=== PATIENT | female | born 1990 | race Two or more races ===

== ENCOUNTER 2025-01-07 11:18 | Emergency (ER) | payer OTHER, MEDICAID, SELFPAY ==
--- NOTE | 2025-01-07 11:35 | EKG_ITS ---
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
[2025-01-07 11:43] VITALS: BP 130/82; PULSE 77; RESP 18; TEMP 36.9; O2SAT 98; BMI 38.9
--- NOTE | 2025-01-07 12:09 | XR_ITS ---
Examination: OB Transvaginal ultrasound of the pelvis, complete Technique: Transvaginal sonographic images pelvis performed using waters scale imaging Exam date and time: January 07, 2025 1311 hours INDICATIONS: Vaginal bleeding beginning 2 days ago, positive test at home FINDINGS: Uterus 8.5 x 4.3 x 5.1 cm No uterine mass or intrauterine gestation No retained products Endometrial stripe 0.4 cm Right ovary 4.4 cm arterial flow solid lesion 19 x 15 x 17 mm Left ovary 5.6 cm arterial flow, left ovarian solid mass 4.0 x 3.6 x 4.5 cm IMPRESSION: Bilateral solid ovarian masses, differential would include endometriomas, early solid ovarian mass lesions Recommend elective MRI pelvis follow-up pre and postcontrast
--- NOTE | 2025-01-07 12:09 | XR_ITS ---
Examination: CT brain head without contrast. 2-D sagittal coronal reconstructions Date and time of exam:January 07, 2025 at 1344 hours Comparison April 10, 2023 INDICATIONS: Syncopal episode, patient fell today CTDI: vol (mGy):51.1 DLP: (mGycm):957 Technique: Multiple CT axial sections of the brain have been obtained, 5 mm slice thickness. Contrast has not been administered. 2-D sagittal, coronal reconstructions have been obtained Low dose protocols were performed. One or more of the following dose reduction techniques were used; automated exposure control, adjustment of the mA and/or KV according to patient size, use of iterative reconstruction technique. Findings: Very extensive artifacts from metallic clips in the patient's hair Ventricles are not enlarged No mass effect No gross hemorrhage IMPRESSION: Significantly limited study No gross hemorrhage, no gross mass effect
--- NOTE | 2025-01-07 12:10 | PD.EDRME ---
Rapid Medical Screening Exam RME Arrival date/time: 01/07/25 11:18 34-year-old female with history of stroke x 2, anemia, hypothyroidism and type 2 diabetes presents emergency department today complains of syncopal episode today patient reports that she is at this time Chief Complaint: Syncope / Near Syncope Time Seen by Provider: 01/07/25 11:59 Vital signs: Vital Signs Temperature 98.5 F 01/07/25 11:43 Pulse Rate 77 01/07/25 11:43 Respiratory Rate 18 01/07/25 11:43 Blood Pressure 130/82 01/07/25 11:43 Pulse Oximetry (%) 98 01/07/25 11:43 Oxygen Delivery Method Room Air 01/07/25 11:43
[2025-01-07 12:54] LABS: Basophils % (Auto) 0 % (0-2.5); Eosinophils # (Auto) 0.1 Thou/mm3 (0.0-0.5); Eosinophils % (Auto) 1 % (0-10); Hematocrit 40.6 % (36.0-46.0); Hemoglobin 13.6 g/dL (12.0-16.0); Immature Granulocytes % (Auto) 0 % (0-0); Immature Granulocytes Auto 0.04 Thou/mm3 (0.00-0.00); Lymphocytes # (Auto) 2.5 Thou/mm3 (1.0-4.8); Lymphocytes % (Auto) 22 % (10-50); Mean Corpuscular HGB Conc 33.5 g/dl (31.0-37.0); Mean Corpuscular Hemoglobin 30.1 pg (25.0-35.0); Mean Corpuscular Volume 90 fL (80-100); Monocytes # (Auto) 0.6 Thou/mm3 (0.0-0.8); Monocytes % (Auto) 5 % (0-12); Neutrophils # (Auto) 8.1 Thou/mm3 (1.8-7.7); Neutrophils % (Auto) 71 % (37-80); Nucleated Red Blood Cell % 0 /100 WBC (0); Platelet Count 343 Thou/mm3 (140-440); RDW Standard Deviation 46.9 fL (36.4-46.3); Red Blood Count 4.52 Miln/mm3 (4.00-5.20); White Blood Count 11.5 Thou/mm3 (3.6-11.0)
[2025-01-07 13:30] LABS: Alanine Aminotransferase 16 U/L (10-49); Albumin, Serum 4.5 gm/dL (3.5-5.0); Albumin/Globulin Ratio 1.4 (1.2-2.2); Alkaline Phosphatase 93 U/L (46-116); Anion Gap 8 (7-16); Aspartate Amino Transferase 14 U/L (0-34); BUN/Creatinine Ratio 15 Ratio (12-20); Beta HCG,Quantitative < 1 mIU/mL (<5.0); Bilirubin,Total 0.5 mg/dL (0.3-1.2); Blood Urea Nitrogen 9 mg/dL (9-23); Calcium 9.1 mg/dL (8.3-10.6); Calcium (Corrected) 9.1 mg/dL (8.5-10.1); Carbon Dioxide 25.6 mMol/L (20.0-31.0); Chloride 105 mMol/L (98-107); Creatinine (Component) 0.6 mg/dL (0.6-1.3); Estimated Creatinine Clearance 150.2 mL/min (>60); Globulin 3.2 gm/dL (2.3-3.5); Glucose 79 mg/dL (74-106); Osmolality,Calculated 275 (275-295); Potassium 3.9 mMol/L (3.4-5.1); Sodium 139 mMol/L (136-145); Total Protein 7.7 gm/dL (5.7-8.2); Troponin I < 0.002 ng/mL (0.0-0.045); eGFR > 60 See Note
[2025-01-07 14:43] VITALS: BP 119/87; PULSE 68; RESP 16; TEMP 36.7; O2SAT 99
--- NOTE | 2025-01-07 14:44 | EDNOTE_ITS ---
ED Syncope RME/HPI General Chief Complaint: Syncope / Near Syncope Stated Complaint: SYNCOPE AT WORK WITH VAGINAL BLEEDING X 1 HR Time Seen by Provider: 01/07/25 11:59 Arrival date/time: 01/07/25 11:18 RME / HPI RME / HPI narrative: 34-year-old female with history of stroke x 2, anemia, hypothyroidism and type 2 diabetes presents emergency department today complains of syncopal episode today patient reports that she is at this time patient denies any other complaints except for vaginal bleeding that started today. Patient is ambulatory. Related Data Home Medications ?Medication ?Instructions ?Recorded ?Confirmed ferrous sulfate 325 mg (65 mg 1 tab PO QDAY 05/23/22 0 05/23/22 iron) tablet Previous Rx's ?Medication ?Instructions ?Recorded ciprofloxacin HCl 500 mg tablet 500 mg PO Q12H #20 tab s 05/23/22 (Cipro) Allergies Allergy/AdvReac Type Severity Reaction Status Date / Time Penicillins Allergy Severe SWELLING, Verified 04/09/23 16:59 HIVES, SOB latex Allergy Intermediate Hives Verified 04/09/23 16:59 raspberry Allergy Mild HIVES Verified 04/09/23 16:59 Anesthetics - Amide Type - Allergy Unknown Verified 04/09/23 16:59 Select A Anesthetics - Yuliana Type- Allergy Unknown Verified 04/09/23 16:59 Parabens amoxicillin Allergy Verified 04/09/23 16:59 Review of Systems Review of Systems Narrative Review of Systems: Review of system reviewed and within normal limits except mentioned in HPI ED Exam Narrative Physical exam: VITAL SIGNS: Reviewed. GENERAL APPEARANCE: Alert and interactive, follows commands, no acute distress, HEAD AND FACE: Non-traumatic. ENT: PERRL, pink conjunctivitis, eyelid no trauma, Mucous membrane moist. NECK: Supple, nontender, no nuchal rigidity. CHEST: No tenderness, no crepitus, no paradoxical movement, no retractions. LUNGS: Clear, well ventilated, symmetric, no rales, no wheezing, no ronchi, no stridor, good breath sounds bilaterally. HEART: Regular rate, regular rhythm, no murmur, no gallops. ABDOMEN: Soft, positive bowel sounds, nondistended, no guarding, nontender, no rebound, no masses, RECTAL: Deferred. GENITAL: Deferred. NEUROLOGICAL: Gross motor function intact sensory function intact, Appropriate for age. MUSCULOSKELETAL: low back nontender, full range of motion. EXTREMITIES: Nontender, full range of motion. SKIN: Color pink, dry, no rash, no lacerations, no abrasions, no contusions. LYMPHATICS: Deferred. Course Quality Measures none Orders Category Date Time Status EKG (ED ONLY) *Do not use* NOW Care 01/07/25 11:[address] head/brain wo con Stat Exams 01/07/25 12:09 Completed EKG (ED Only) Stat Exams 01/07/25 11:35 Draft US OB transvaginal Stat Exams 01/07/25 12:09 Completed ABO/RH Type Stat Lab 01/07/25 12:07 Completed Beta HCG,Quantitative Stat Lab 01/07/25 12:07 Completed CBC Stat Lab 01/07/25 12:07 Completed Comprehensive Metabolic Panel Stat Lab 01/07/25 12:07 Completed Troponin I Stat Lab 01/07/25 12:07 Completed Vital Signs Vital signs: Vital Signs Temperature 98.5 F 01/07/25 11:43 Pulse Rate 77 01/07/25 11:43 Respiratory Rate 18 01/07/25 11:43 Blood Pressure 130/82 01/07/25 11:43 Pulse Oximetry (%) 98 01/07/25 11:43 Oxygen Delivery Method Room Air 01/07/25 11:43 Syncope MDM Narrative MDM Narrative:: 34-year-old female with history of stroke x 2, anemia, hypothyroidism and type 2 diabetes presents emergency department today complains of syncopal episode today patient reports that she is at this time patient denies any other complaints except for vaginal bleeding that started today. Patient is ambulatory. Patient's workup today all came back unremarkable no sign of anemia. Patient is not . Ultrasound showed possible endometrial mass. Of the ovaries. Patient was given copy of his ultrasound. Patient appears nontoxic and hemodynamically stable. Patient discharged home and instructed to follow-up with primary care provider in 24 to 48 hours. Instructed to return to the emergency department immediately if worsening of symptoms Patient data External records reviewed:: None Clinical information provided by:: none Social determinants that could affect healthcare access:: none Patient has the following chronic illnesses:: None How is presenting disease/condition affected by chronic disease/condition?: no chronic disease Evaluation data The following diagnostics were reviewed and interpreted by me:: lab results and radiology exam(s) Lab and/or radiology exams considered but not ordered:: None Interpretation Summary: See results in MDM Medications / Prescriptions Medications or Prescriptions considered but not ordered:: None Medication administrations:: None Consultations Consultation(s) initiated? (list below): No Diagnosis Syncope Differential Diagnosis: vasovagal syncope and dehydration Most likely diagnosis given after review of the tests above:: Vasovagal syncope, vaginal bleeding. Admission Indicated Admission indicated?: not indicated Explain why admission is indicated or not indicated:: Stable Admission Request Was there a request for admission?: No Disposition Plan Disposition Plan: Discharge Discharge Attestation Discharge Attestation: The patient was given an opportunity to ask questions and understood the discharge instructions. Discharge instructions specifically effects, indications for sooner follow up or return to the emergency department, and the expected course of current diagnosis. Patient condition: Stable Discharge Plan Plan Patient Disposition: HOME (Self Care) Disposition Comment: Stable Prescriptions/Referrals Prescriptions/Med Rec: No Action ferrous sulfate 325 mg (65 mg iron) tablet 1 tab PO QDAY Patient Comments: TAKE 1 TABLET BY MOUTH EVERY DAY FOR 30 DAYS ciprofloxacin HCl [Cipro] 500 mg tablet 500 mg PO Q12H Qty: 20 0RF Referrals: Alonzo Ellsworth PA-C [Primary Care Provider] - In 1 week Problem List Clinical Impression: Vasovagal syncope, Vaginal bleeding Patient/Caregiver Discharge Instructions Discharge Activity: activity as tolerated Education Materials: Treatment for Vasovagal Syncope Additional Instructions: Thank you for the opportunity for serving you today. You are stable for discharged . You are advised to: Follow-up with your PCP in 1 to 2 days and as per referral to QUALITY ASSURANCE MANAGER regarding your incidental finding of possible endometriomas Return to ED for worsening of symptoms Increase oral fluids Take medication as prescribed Print Language: Divehi Stand Alone Forms: Alda Award Info., Patient Portal Info Letter
== END 2025-01-07 16:18 | disposition home or self-care (01) ==
PROVIDERS: Nurse Practitioner Primary Care; Emergency Provider Emergency Medicine; PCP Physician Assistant
DX: R55 Syncope and collapse (principal); N93.9 Abnormal uterine and vaginal bleeding, unspecified; E03.9 Hypothyroidism, unspecified; E11.9 Type 2 diabetes mellitus without complications; Z86.73 Personal history of transient ischemic attack (TIA), and cerebral infarction without residual deficits
CPT/HCPCS: 36415; 70450; 76817; 80053; 84484; 84702; 85025; 86900; 86901; 93005; 99284

== ENCOUNTER 2025-01-13 08:35 | Outpatient (AMB) | payer OTHER, MEDICAID, SELFPAY ==
[2025-01-13 08:38] VITALS: BP 118/79; PULSE 85; RESP 16; TEMP 36.2; O2SAT 99; BMI 38.7
--- NOTE | 2025-01-13 08:38 | AMB.GYNCLNOT ---
Vital Signs 01/13/25 08:38 Height 1.6 m Height Method Stated Weight 99.053 kg Weight Measurement Method Standing Scale BMI 38.7 BP 118/79 Blood Pressure Source Automatic Cuff Blood Pressure Location Left Upper Arm Position Sitting Respiration 16 Pulse 85 Pulse Source Monitor Temp 97.2 F Temp Source Oral Pulse Oximetry (%) 99 Oxygen Delivery Method Room Air Allergies/Home Meds Allergies & Medications Allergies Penicillins Allergy (Severe, Verified 01/13/25 08:40) SWELLING, HIVES, SOB latex Allergy (Intermediate, Verified 01/13/25 08:40) Hives raspberry Allergy (Mild, Verified 01/13/25 08:40) HIVES Anesthetics - Amide Type - Select A Allergy (Unknown, Verified 01/13/25 08:40) Anesthetics - Yuliana Type- Parabens Allergy (Unknown, Verified 01/13/25 08:40) amoxicillin Allergy (Verified 01/13/25 08:40) Medication Reconciliation ondansetron 4 mg disintegrating tablet 4 mg PO Q6H PRN nausea and vomiting 30 days #60 tabs 01/13/25 [Rx] vitamins no.68-iron 28 mg-folate no.6 1 mg-dha 400 mg capsule (Prenate Enhance) 1 cap PO QDAY 90 days #90 caps 01/13/25 [Rx] Intake Visit Data Collection New Patient or Established: Established Patient (seen at [facility] within 3 years) Reason for Visit:: BIlateral Ovarian Cysts Consent obtained for Telemed Visit: No Seen by Clinical Staff ONLY (RN/MA): No Certified Alcohol And Drug Counselor Required: No Do You Feel Safe at Home: Yes Authorities Contacted: N/A PCP or OBGYN visit in last 3 months: Yes Hx Now: No Are you currently on any form of Control: No Last menstrual period: 12/13/24 Pain Present Currently: No Pain Scale Used: Toro-Florez/Numerical Smoking Status Smoking Status: Never smoker Laboratory Phlebotomist history Laboratory Phlebotomist History Menstrual regularity: regular Flow: normal Monthly: Yes Age at menarche: 16 Menopausal: No Currently sexually active: Yes Questionnaires Covid-19 Vaccine Questionnaire Has patient been vacinated for Covid-19 Have you been vacinated for Covid-19: Yes PHQ-9 PHQ-2 Over the last 2 weeks, how often have you been bothered by any of the following problems? 1. Little interest or pleasure in doing things: not at all 2. Feeling down, depressed, or hopeless: not at all Total score: 0 Depression screen completed yes Social History Living Situation History Marital Status: Single Lives With: Family Housing: House Tobacco History Smoking Status: Never smoker Second Hand Smoke Exposure: No Alcohol History Alcohol Intake: Never Domestic Abuse History Do You Feel Safe at Home: Yes Past Medical History Past Medical History Have you ever been diagnosed with any of the following: Cardiology Problems Congestive Heart Failure: No Respiratory Problems Chronic Obstructive Pulmonary Disease (COPD): No Asthma: Yes Stomache/Intestinal Problems Gall Bladder Disease: Yes Genital/Urinary Problems Renal Disease: No Reproductive Problems Previous Pregnancies: Yes Endocrine Problems Diabetes Mellitus Type 1: No Diabetes Mellitus Type 2: No Hyperthyroidism: Yes Blood Problems Sickle Cell Disease: No Other Problems Hospitalization: Yes Anesthesia Reactions: Yes Chicken Pox: Yes Measles: Yes History of Present Illness HPI Narrative Patient presents with a history of bilateral ovarian cysts, with the left side being larger. She experienced an episode of bleeding and lightheadedness, which coincided with her expected menstrual period. Patient reports taking a test prior to this episode, which was initially positive but subsequently negative, confirmed by a blood test on the day of the bleeding. This is the first time she has experienced such an episode. She also complains of significant pelvic pain. Patient has been trying to conceive for two years without success, and she is concerned about the potential impact of the cysts on her fertility. She reports a history of miscarriage two years ago, at which time she already had an ovarian cyst that grew by approximately 2 millimeters. Despite the persistent pelvic pain, her menstrual cycles have remained normal. Patient uses an ovulation tracking kain but has not confirmed ovulation with tests. Patient has a history of hypothyroidism, specifically Axel's disease, but reports that her levels have been controlled without medication for the past two years. She also has a history of gestational diabetes, which is not currently active. Patient is currently transitioning from private insurance to [employer], with her private insurance ending on January 17. Review of Systems Review of Systems Systems Reviewed: All systems reviewed, normal except as documented Exam General Limitations: no limitations General Appearance: alert, cooperative and well groomed Head Head exam: normocephalic Eye Eye exam: Present normal appearance Abdominal Abdominal exam: Present tenderness (left lower quadrant) and guarding (absent) Abdominal tenderness: Present LLQ External exam: Present normal external exam Speculum exam: Present normal speculum exam Bimanual exam: Present normal bimanual exam Assessment & Plan Diagnosis / Problem List (1) Left ovarian cyst: Status: Acute Plan: - Order tumor marker blood tests to determine cyst type. - Schedule follow-up ultrasound in one month. - Plan for laparoscopic cystectomy due to persistent pain. - Perform tubal flushing during laparoscopy to improve fertility. - Initiate insurance authorization process, noting [facility] transition in January. - Provide up to 2 weeks medical leave for procedure. - Schedule surgery for mid-January, pending insurance approval. - Perform pre-operative blood tests. (2) Female infertility, unspecified: Status: Acute Plan: - Continue tracking menstrual cycles using current kain. - Recommend ovulation prediction tests during estimated ovulation time. - Plan to prescribe Clomid if not ovulating. - Consider alternative fertility treatments if ovulating but not conceiving. - Reassess fertility treatment options after cyst removal and based on ovulation test results. (3) Axel thyroiditis: Status: Acute Assessment and Plan: Monitor thyroid function as part of pre-operative assessment. (4) Metabolic syndrome: Status: Acute Assessment and Plan: Monitor blood glucose levels as part of pre-operative assessment. Office Procedures [facility] In-Center Procedures Ambulatory Location Ambulatory Dept Location: OB Clinic HCG Urine Urine HCG at bedside: Yes OB Clinic LOC & Office Proc's Nursing/Assessment Patient Status: Initial/New Patient OB Clinic Nursing Assessment: BP Monitoring, Medication Reconciliation, Update PMH in EMR and Vital Signs OB Clinic Coordination of Care: Consent,records obtained, informed consent, Education Simp Pt/Fam, 1 Ins Authorization, Lab and Imaging orders and Staff clarify orders New Patient Charge New Patient Point Assignment: 1104 New Patient Point Charge: FLUXER Level 4 ([id number])
== END 2025-01-13 09:06 | disposition home or self-care (01) ==
LOC: HODSOBC 08:35
PROVIDERS: PCP Physician Assistant; Supervising Provider Obstetrics & Gynecology; Visit Provider Obstetrics & Gynecology
DX: N83.202 Unspecified ovarian cyst, left side (principal); N97.9 Female infertility, unspecified; E06.3 Autoimmune thyroiditis; E88.810 Metabolic syndrome
CPT/HCPCS: 81025; 99204; 99213; G0463

== ENCOUNTER 2025-01-26 08:32 | Outpatient (AMB) | payer OTHER, MEDICAID, SELFPAY ==
--- NOTE | 2025-01-26 08:37 | AMB.OBVISIT ---
Vital Signs 01/26/25 08:38 Height 1.6 m Height Method Stated Weight 101.321 kg Weight Measurement Method Standing Scale BMI 39.5 BP 112/76 Blood Pressure Source Manual Cuff- Doppler Blood Pressure Location Left Upper Arm Position Sitting Respiration 16 Pulse 80 Pulse Source Monitor Temp 98 F Temp Source Oral Pulse Oximetry (%) 97 Oxygen Delivery Method Room Air Allergies/Home Meds Allergies & Medications Allergies Penicillins Allergy (Severe, Verified 01/26/25 08:40) SWELLING, HIVES, SOB latex Allergy (Intermediate, Verified 01/26/25 08:40) Hives raspberry Allergy (Mild, Verified 01/26/25 08:40) HIVES Anesthetics - Amide Type - Select A Allergy (Unknown, Verified 01/26/25 08:40) Anesthetics - Yuliana Type- Parabens Allergy (Unknown, Verified 01/26/25 08:40) amoxicillin Allergy (Verified 01/26/25 08:40) Medication Reconciliation ondansetron 4 mg disintegrating tablet 4 mg PO Q6H PRN nausea and vomiting 30 days #60 tabs 01/13/25 [Rx Confirmed 01/26/25] vitamins no.68-iron 28 mg-folate no.6 1 mg-dha 400 mg capsule (Prenate Enhance) 1 cap PO QDAY 90 days #90 caps 01/13/25 [Rx Confirmed 01/26/25] Intake Visit Data Collection New Patient or Established: Established Patient (seen at [facility] within 3 years) Reason for Visit:: care Seen by Clinical Staff ONLY (RN/MA): No Snow Plow Operator Required: No Do You Feel Safe at Home: Yes Authorities Contacted: N/A PCP or OBGYN visit in last 3 months: Yes Date of Last PCP or OBGYN visit: 01/13/25 Hx Now: Yes Are you currently on any form of Control: No Pain Present Currently: No Pain Scale Used: Toro-Florez/Numerical Pain scale:: 0 Smoking Status Smoking Status: Never smoker Questionnaires Covid-19 Vaccine Questionnaire Has patient been vacinated for Covid-19 Have you been vacinated for Covid-19: Yes PHQ-9 PHQ-2 Over the last 2 weeks, how often have you been bothered by any of the following problems? 1. Little interest or pleasure in doing things: not at all 2. Feeling down, depressed, or hopeless: not at all Total score: 0 PHQ-9 3. Trouble falling or staying asleep, or sleeping too much: Not at all 4. Feeling tired or having little energy: Not at all 5. Poor appetite or overeating: Not at all 6. Feeling bad about yourself - or that you are a failure or have let yourself or your family down: Not at all 7. Trouble concentrating on things, such as reading the newspaper or watching television: Not at all 8. Moving or speaking so slowly that other people could have noticed? - Or the opposite - being so fidgety or restless that you have been moving around a lot more than usual: not at all 9. Thoughts that you would be better off or of hurting yourself in some way: Not at all Total score: 0 Source: Developed by Drs. Benito Aparicio, Shruthi Corbett, Mehul Aragon and colleagues, with an educational ela from [employer]. Depression screen completed yes Social History Living Situation History Marital Status: Lives With: Family Housing: House Tobacco History Smoking Status: Never smoker Second Hand Smoke Exposure: No Alcohol History Alcohol Intake: Never Substance Use History Substance Use: no Domestic Abuse History Do You Feel Safe at Home: Yes Past Medical History Past Medical History Have you ever been diagnosed with any of the following: Neurological Problems Cerebrovascular Accident (CVA): No Transient Ischemic Attacks (TIA): No Dementia: No Alzheimer's Disease: No Parkinson's Disease: No Brain Tumor: No Meningitis: No Seizures: No Epilepsy: No Cardiology Problems Myocardial Infarction: No Cardiac Arrhythmia: No Atrial Fibrillation: No Angina: No Congestive Heart Failure: No Respiratory Problems Chronic Obstructive Pulmonary Disease (COPD): No Asthma: Yes Bronchitis: No Emphysema: No Pneumonia: No Pulmonary Fibrosis: No Tuberculosis: No Pulmonary Embolism: No Stomache/Intestinal Problems Liver Cancer: No Hepatitis: No Cirrhosis: No Pancreatic Cancer: No Pancreatitis: No Celiac Disease: No Gall Bladder Disease: Yes Genital/Urinary Problems Chronic Kidney Disease: No Renal Disease: No Kidney Stones: No Polycystic Kidney Disease: No Neurogenic Bladder: No Reproductive Problems Previous Pregnancies: Yes Uterine Prolapse: No Musculoskeletal Problems Muscular Dystrophy: No Myasthenia Gravis: No Marfan's Syndrome: No Bone Cancer: No Head,Eye,Nose,Throat Problems Cataracts: No Glaucoma: No Blind: No Retinal Detachment: No Macular Degeneration: No Chronic Ear Infections: No Deafness: No Eye Prosthesis: No Endocrine Problems Diabetes Mellitus Type 1: No Diabetes Mellitus Type 2: No Hypoglycemia: No Hector's Syndrome: No Marco's Disease: No Hyperthyroidism: Yes Blood Problems Anemia: No Leukemia: No Hemophilia: No Thalassemia: No Sickle Cell Disease: No Clotting Problems: No Psychologic Problems Schizophrenia: No Recreational Drug Use: No Bipolar Disorder: No Depression: No Anxiety: No Other Problems Hospitalization: Yes Anesthesia Reactions: Yes Chicken Pox: Yes Measles: Yes
[2025-01-26 08:38] VITALS: BP 112/76; PULSE 80; RESP 16; TEMP 36.6; O2SAT 97; BMI 39.5
--- NOTE | 2025-01-26 08:48 | AMB.GYNCLNOT ---
Vital Signs 01/26/25 08:38 01/26/25 08:52 Height 1.6 m Height Method Stated Weight 101.321 kg Weight Measurement Method Standing Scale BMI 39.5 BP 112/76 112/76 Blood Pressure Source Manual Cuff- Doppler Blood Pressure Location Left Upper Arm Position Sitting Respiration 16 16 Pulse 80 80 Pulse Source Monitor Temp 98 F 98 F Temp Source Oral Pulse Oximetry (%) 97 97 Oxygen Delivery Method Room Air Allergies/Home Meds Allergies & Medications Allergies Penicillins Allergy (Severe, Verified 01/26/25 08:49) SWELLING, HIVES, SOB latex Allergy (Intermediate, Verified 01/26/25 08:49) Hives raspberry Allergy (Mild, Verified 01/26/25 08:49) HIVES Anesthetics - Amide Type - Select A Allergy (Unknown, Verified 01/26/25 08:49) Anesthetics - Yuliana Type- Parabens Allergy (Unknown, Verified 01/26/25 08:49) amoxicillin Allergy (Verified 01/26/25 08:49) Medication Reconciliation ondansetron 4 mg disintegrating tablet 4 mg PO Q6H PRN nausea and vomiting 30 days #60 tabs 01/13/25 [Rx Confirmed 01/26/25] vitamins no.68-iron 28 mg-folate no.6 1 mg-dha 400 mg capsule (Prenate Enhance) 1 cap PO QDAY 90 days #90 caps 01/13/25 [Rx Confirmed 01/26/25] medroxyprogesterone 10 mg tablet (Provera) 10 mg PO QDAY 21 days #21 tabs 01/26/25 [Rx] Intake Visit Data Collection New Patient or Established: Established Patient (seen at [facility] within 3 years) Reason for Visit:: Worsening pain, fainting, abnormal uterine bleeding with blood clots, lightheadedness. 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 1. Little interest or pleasure in doing things: not at all 2. Feeling down, depressed, or hopeless: not at all Total score: 0 PHQ-9 3. Trouble falling or staying asleep, or sleeping too much: Not at all 4. Feeling tired or having little energy: Not at all 5. Poor appetite or overeating: Not at all 6. Feeling bad about yourself - or that you are a failure or have let yourself or your family down: Not at all 7. Trouble concentrating on things, such as reading the newspaper or watching television: Not at all 8. Moving or speaking so slowly that other people could have noticed? - Or the opposite - being so fidgety or restless that you have been moving around a lot more than usual: not at all 9. Thoughts that you would be better off or of hurting yourself in some way: Not at all Total score: 0 Source: Developed by Drs. Benito Aparicio, Shruthi Corbett, Mehul Aragon and colleagues, with an educational ela from [employer]. Depression screen completed yes Social History Living Situation History Marital Status: Lives With: Family Housing: House Tobacco History Smoking Status: Never smoker Second Hand Smoke Exposure: No Alcohol History Alcohol Intake: Never Substance Use History Substance Use: no Domestic Abuse History Do You Feel Safe at Home: Yes Past Medical History Past Medical History Have you ever been diagnosed with any of the following: Neurological Problems Cerebrovascular Accident (CVA): No Transient Ischemic Attacks (TIA): No Dementia: No Alzheimer's Disease: No Parkinson's Disease: No Brain Tumor: No Meningitis: No Seizures: No Epilepsy: No Cardiology Problems Myocardial Infarction: No Cardiac Arrhythmia: No Atrial Fibrillation: No Angina: No Heart Murmur: No Congestive Heart Failure: No Respiratory Problems Chronic Obstructive Pulmonary Disease (COPD): No Asthma: Yes Stomache/Intestinal Problems Liver Cancer: No Hepatitis: No Cirrhosis: No Pancreatic Cancer: No Pancreatitis: No Gall Bladder Disease: Yes Genital/Urinary Problems Chronic Kidney Disease: No Renal Disease: No Kidney Stones: No Polycystic Kidney Disease: No Neurogenic Bladder: No Inguinal Hernia: No Reproductive Problems Breast Cancer: No Endometriosis: No Fibroids: No Genital Herpes: No Previous Pregnancies: Yes Musculoskeletal Problems Muscular Dystrophy: No Myasthenia Gravis: No Marfan's Syndrome: No Bone Cancer: No Arthritis: No Head,Eye,Nose,Throat Problems Cataracts: No Glaucoma: No Blind: No Retinal Detachment: No Macular Degeneration: No Endocrine Problems Diabetes Mellitus Type 1: No Diabetes Mellitus Type 2: No Hypoglycemia: No Hyperthyroidism: Yes Blood Problems Anemia: No Leukemia: No Hemophilia: No Thalassemia: No Sickle Cell Disease: No Clotting Problems: No Psychologic Problems Schizophrenia: No Recreational Drug Use: No Bipolar Disorder: No Other Problems Hospitalization: Yes Anesthesia Reactions: Yes Chicken Pox: Yes Measles: Yes Surgical History Angioplasty: No Appendectomy: No Bariatric Surgery: No Breast Surgery: No Cancer Surgery: No History of Present Illness HPI Narrative The patient reports worsening pain and recurrent fainting episodes. 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 The patient also mentions fainting again recently. The patient has been experiencing abnormal uterine bleeding for the past two weeks, outside of her regular menstrual cycle. Her last menstrual period was in December, with the next expected around the of the current month. The bleeding initially slowed to spotting but has since resumed with the passage of numerous blood clots, accompanied by feelings of lightheadedness. She reports a negative test and notes clear discharge. The patient has ovarian cysts that require surgical intervention. 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 Review of Systems Review of Systems Systems Reviewed: All systems reviewed, normal except as documented Exam General Limitations: no limitations General Appearance: alert, in no apparent distress, comfortable, cooperative, healthy appearing, well developed and well groomed Head Head exam: atraumatic, normocephalic and normal inspection Neck Neck exam: Present normal inspection, full ROM and trachea midline Chest Chest inspection: Present normal inspection and symmetric chest wall rise Resp Respiratory exam: Present normal lung sounds bilaterally Card Cardiovascular exam: Present regular rate, normal rhythm and normal heart sounds Abdominal Abdominal exam: Present soft and normal bowel sounds Extremities Extremities exam: Present normal inspection and full ROM Back Back exam: Present normal inspection and full ROM Psych Psychiatric exam: Present normal affect and normal mood Skin Skin exam: Present warm, dry, intact and normal color Assessment & Plan Diagnosis / Problem List (1) Metabolic syndrome: Status: Acute Plan: Ovarian Cysts with Menorrhagia and Syncope Patient presents with worsening pain, recurrent syncope, and menorrhagia. She reports daily pain, exacerbated by squatting, accompanied by lightheadedness. Abnormal uterine bleeding has been ongoing for 2 weeks, with passage of blood clots and associated lightheadedness. Last menstrual period was in December, with next expected around January 24. test is negative. The patient has previously diagnosed ovarian cysts requiring surgical intervention. The combination of symptoms suggests a potential relationship between the ovarian cysts and the menorrhagia, with syncope possibly secondary to blood loss or pain. - Obtain laboratory tests to further evaluate the nature of the cysts - Schedule surgery for cyst removal - Administer progesterone for 3 weeks to control bleeding if test remains negative - Provide work restriction letter for 4 weeks, starting today - Arrange follow-up after laboratory results and surgical approval - Patient to return for laboratory tests immediately (2) Axel thyroiditis: Status: Acute (3) Female infertility, unspecified: Status: Acute (4) Left ovarian cyst: Status: Acute (5) Obesity, morbid, BMI 40.0-49.9: Status: Acute Office Procedures OB Clinic LOC & Office Proc's Nursing/Assessment Patient Status: Established Patient OB Clinic Nursing Assessment: Medication Reconciliation, Update PMH in EMR and Vital Signs OB Clinic Coordination of Care: Complex Care and Chronic Disease 1-5, Consent,records obtained, informed consent, Education Simp Pt/Fam and Staff clarify orders Established Patient Charge Established Patient Point Assignment: 85 Established Patient Point Charge: EP Level 3 (80-115)
[2025-01-26 08:52] VITALS: BP 112/76; PULSE 80; RESP 16; TEMP 36.6; O2SAT 97
== END 2025-01-26 08:45 | disposition home or self-care (01) ==
LOC: HODSOBC 08:32
PROVIDERS: PCP Physician Assistant; Referring Provider Physician Assistant; Supervising Provider Obstetrics & Gynecology; Visit Provider Obstetrics & Gynecology
DX: E88.810 Metabolic syndrome (principal); E06.3 Autoimmune thyroiditis; N97.9 Female infertility, unspecified; N83.202 Unspecified ovarian cyst, left side; E66.01 Morbid (severe) obesity due to excess calories; Z68.41 Body mass index [BMI] 40.0-44.9, adult
CPT/HCPCS: 99213; G0463

== ENCOUNTER → 2025-01-26 | Outpatient (CLI) | payer OTHER, MEDICAID, SELFPAY | END | disposition home or self-care (01) | PROVIDERS: PCP Physician Assistant; Referring Provider Obstetrics & Gynecology; Visit Provider Obstetrics & Gynecology | DX: N83.202 Unspecified ovarian cyst, left side (principal) | CPT/HCPCS: 36415; 86304 ==

== ENCOUNTER 2025-04-16 09:23 | Outpatient (AMB) | payer MEDICAID, SELFPAY ==
[2025-04-16 09:39] VITALS: BP 102/72; PULSE 91; RESP 18; TEMP 36.2; O2SAT 97; BMI 38.2
--- NOTE | 2025-04-16 09:39 | AMB.GYNCLNOT ---
Vital Signs 04/16/25 09:39 Height 1.6 m Height Method Stated Weight 98.033 kg Weight Measurement Method Standing Scale BMI 38.2 BP 102/72 Blood Pressure Source Automatic Cuff Blood Pressure Location Left Upper Arm Position Sitting Respiration 18 Pulse 91 Pulse Source Monitor Temp 97.2 F Temp Source Oral Pulse Oximetry (%) 97 Oxygen Delivery Method Room Air Allergies/Home Meds Allergies & Medications Allergies Penicillins Allergy (Severe, Verified 04/17/25 05:58) SWELLING, HIVES, SOB latex Allergy (Intermediate, Verified 04/17/25 05:58) Hives raspberry Allergy (Mild, Verified 04/17/25 05:58) HIVES Anesthetics - Amide Type - Select A Allergy (Unknown, Verified 04/17/25 05:58) Anesthetics - Yuliana Type- Parabens Allergy (Unknown, Verified 04/17/25 05:58) amoxicillin Allergy (Verified 04/17/25 05:58) Medication Reconciliation aspirin 81 mg tablet 81 mg PO QDAY 04/16/25 [History Confirmed 04/16/25] doxycycline monohydrate 100 mg tablet 100 mg PO DAILY 04/16/25 [History Confirmed 04/16/25] Intake Visit Data Collection New Patient or Established: Established Patient (seen at [facility] within 3 years) Reason for Visit:: Preoperative visit for scheduled laparoscopic bilateral ovarian cystectomy Seen by Clinical Staff ONLY (RN/MA): No Tourist Agent Required: No Do You Feel Safe at Home: Yes Authorities Contacted: N/A PCP or OBGYN visit in last 3 months: Yes Date of Last PCP or OBGYN visit: 01/26/25 Hx Now: Yes Are you currently on any form of Control: No Pain Present Currently: No Pain Scale Used: Toro-Florez/Numerical Pain scale:: 0 Smoking Status Smoking Status: Never smoker 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 Menstrual regularity: regular Flow: normal Monthly: Yes How many days does period last: 5 Age at menarche: 14 Currently sexually active: Yes PRACTICE ADVISOR: Past Medical History Past Medical History: Yes Hx Neurological Disorders, Yes Hx Hyperthyroidism, No Hx Breast Cancer, No Hx Cardiac Disorders, No Hx Cancer, Yes Hx Blood Disorders, Yes Hx Anemia, No Hx Gastrointestinal Disorders, No Hx Renal Disease, No Hx Diabetes Mellitus Type 1 and No Hx Diabetes Mellitus Type 2 Questionnaires Covid-19 Vaccine Questionnaire Has patient been vacinated for Covid-19 Have you been vacinated for Covid-19: Yes PHQ-9 PHQ-2 Over the last 2 weeks, how often have you been bothered by any of the following problems? 1. Little interest or pleasure in doing things: not at all 2. Feeling down, depressed, or hopeless: not at all Total score: 0 PHQ-9 3. Trouble falling or staying asleep, or sleeping too much: Not at all 4. Feeling tired or having little energy: Not at all 5. Poor appetite or overeating: Not at all 6. Feeling bad about yourself - or that you are a failure or have let yourself or your family down: Not at all 7. Trouble concentrating on things, such as reading the newspaper or watching television: Not at all 8. Moving or speaking so slowly that other people could have noticed? - Or the opposite - being so fidgety or restless that you have been moving around a lot more than usual: not at all 9. Thoughts that you would be better off or of hurting yourself in some way: Not at all Total score: 0 If you checked off any problems, how difficult have these problems made it for you to do your work, take care of things at home, or get along with other people?: not difficult at all Source: Developed by Drs. Benito Aparicio, Shruthi Corbett, Mehul Aragon and colleagues, with an educational ela from [employer]. Depression screen completed yes Social History Living Situation History Lives With: Family Housing: House Tobacco History Smoking Status: Never smoker Second Hand Smoke Exposure: No Alcohol History Alcohol Intake: Current Substance Use History Substance Use: no Domestic Abuse History Do You Feel Safe at Home: Yes History of Present Illness HPI Narrative Danita Garcia, a 35-year-old female, presents for a preoperative visit prior to scheduled laparoscopic bilateral ovarian cystectomy tomorrow. The patient's primary concern is related to anesthesia, as she reports a history of adverse reactions. Ms. Garcia describes a previous incident during a gallbladder removal surgery in 2017 where her heart rate dropped during the procedure. She mentions that this occurred in [place]. The patient also reports a family history of similar reactions, stating that her daughter has experienced comparable issues with anesthesia. They were informed it might be related to pseudocholinesterase deficiency, which appears to run in the family. Ms. Garcia notes that out of her four siblings, she is the only one affected, and among her children, only her daughter has shown similar reactions. The patient mentions having an endoscopy last year without any anesthesia-related problems. She speculates that her previous adverse reaction might have been due to complications from her gallbladder issues or a specific anesthesia medication used. Ms. Garcia reports that she has already informed the hospital about her anesthesia concerns during her pre-operative admission. In addition to the cystectomy, the patient inquires about the possibility of having a saline flush of her fallopian tubes during the procedure. Review of Systems Cardiovascular: Positive for history of heart rate drop during anesthesia. Exam General General Appearance: alert, in no apparent distress and healthy appearing Head Head exam: atraumatic Neck Neck exam: Present normal inspection and trachea midline Chest Chest inspection: Present normal inspection and symmetric chest wall rise External exam: Present normal external exam; Absent tenderness Neuro Neurological exam: Present oriented X3 Psych Psychiatric exam: Present normal affect and normal mood Office Procedures OB Clinic LOC & Office Proc's Nursing/Assessment Patient Status: Established Patient OB Clinic Nursing Assessment: Medication Reconciliation, Update PMH in EMR and Vital Signs OB Clinic Coordination of Care: Education Complex Pt/Fam, Consent,records obtained, informed consent, Education Simp Pt/Fam, Lab and Imaging orders and Staff clarify orders Established Patient Charge Established Patient Point Assignment: 95 Established Patient Point Charge: EP Level 3 (80-115) Assessment & Plan Diagnosis / Problem List (1) Unspecified ovarian cyst, unspecified side: Status: Acute (2) Other specified metabolic disorders: Status: Acute Plan Problem List - Bilateral ovarian cysts (N83.20) - Pseudocholinesterase deficiency (E88.89) Assessment 35-year-old female presenting for preoperative visit prior to scheduled laparoscopic bilateral ovarian cystectomy. Patient reports history of adverse reactions to anesthesia, including bradycardia during a cholecystectomy in 2017. Patient and her daughter are suspected to have pseudocholinesterase deficiency, which may require alternative anesthetic agents. Patient also mentions a history of endoscopy last year without anesthetic complications. The surgical plan includes cyst removal from both ovaries with the goal of ovarian preservation, as well as a saline flush of the fallopian tubes. Plan - Proceed with scheduled laparoscopic bilateral ovarian cystectomy tomorrow - Discuss anesthesia concerns with anesthesiologist Dr. Sage before surgery, particularly regarding possible pseudocholinesterase deficiency and need for alternative anesthesia - Perform saline flush of fallopian tubes during surgery - Attempt to preserve ovaries during cyst removal - Provide work note for 2-week extension - Schedule 10-day post-operative appointment - Complete disability forms online if patient provides D-I number
== END 2025-04-16 10:11 | disposition home or self-care (01) ==
LOC: HODSOBC 09:23
PROVIDERS: PCP Obstetrics & Gynecology; Referring Provider Obstetrics & Gynecology; Supervising Provider Obstetrics & Gynecology; Visit Provider Obstetrics & Gynecology
DX: N83.202 Unspecified ovarian cyst, left side (principal); N83.201 Unspecified ovarian cyst, right side; E88.09 Other disorders of plasma-protein metabolism, not elsewhere classified; Z90.49 Acquired absence of other specified parts of digestive tract; Z88.4 Allergy status to anesthetic agent; Z88.0 Allergy status to penicillin; Z91.040 Latex allergy status
CPT/HCPCS: 99213; G0463

== ENCOUNTER 2025-04-17 05:40 | Day surgery (SDC) | payer MEDICAID, SELFPAY ==
[2025-04-16 07:00] VITALS: BMI 37.2
--- NOTE | 2025-04-16 07:22 | SUR.PREOP ---
Pt stated she had a stroke on 2022, and TIA on 2023, she was hospitalized at 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 Pt follows with Dr Lujan.
[2025-04-16 07:50] LABS: Basophils % (Auto) 0 % (0-2.5); Eosinophils # (Auto) 0.2 Thou/mm3 (0.0-0.5); Eosinophils % (Auto) 2 % (0-10); Hematocrit 40.2 % (36.0-46.0); Hemoglobin 13.7 g/dL (12.0-16.0); Immature Granulocytes % (Auto) 0 % (0-0); Immature Granulocytes Auto 0.04 Thou/mm3 (0.00-0.00); Lymphocytes % (Auto) 19 % (10-50); Mean Corpuscular HGB Conc 34.1 g/dl (31.0-37.0); Mean Corpuscular Hemoglobin 30.5 pg (25.0-35.0); Mean Corpuscular Volume 90 fL (80-100); Monocytes # (Auto) 0.5 Thou/mm3 (0.0-0.8); Monocytes % (Auto) 5 % (0-12); Neutrophils # (Auto) 7.6 Thou/mm3 (1.8-7.7); Neutrophils % (Auto) 74 % (37-80); Nucleated Red Blood Cell % 0 /100 WBC (0); Platelet Count 326 Thou/mm3 (140-440); RDW Standard Deviation 47.2 fL (36.4-46.3); Red Blood Count 4.49 Miln/mm3 (4.00-5.20); White Blood Count 10.4 Thou/mm3 (3.6-11.0)
[2025-04-16 08:01] LABS: Alanine Aminotransferase 13 U/L (10-49); Albumin, Serum 4.5 gm/dL (3.5-5.0); Albumin/Globulin Ratio 1.6 (1.2-2.2); Alkaline Phosphatase 85 U/L (46-116); Anion Gap 9 (7-16); Aspartate Amino Transferase 14 U/L (0-34); BUN/Creatinine Ratio 14 Ratio (12-20); Bilirubin,Total 0.5 mg/dL (0.3-1.2); Blood Urea Nitrogen 11 mg/dL (9-23); Calcium 8.6 mg/dL (8.3-10.6); Calcium (Corrected) 8.6 mg/dL (8.5-10.1); Carbon Dioxide 26.3 mMol/L (20.0-31.0); Chloride 106 mMol/L (98-107); Creatinine (Component) 0.8 mg/dL (0.6-1.3); Estimated Creatinine Clearance 112.9 mL/min (>60); Globulin 2.8 gm/dL (2.3-3.5); Glucose 80 mg/dL (74-106); Osmolality,Calculated 279 (275-295); Sodium 141 mMol/L (136-145); Total Protein 7.3 gm/dL (5.7-8.2); eGFR > 60 See Note
[2025-04-16 08:03] LABS: HCG,Qualitative Serum Negative
--- NOTE | 2025-04-16 14:01 | SUR.PREOP ---
Pt notified to come in at 0545 tomorrow for surgery.
[2025-04-17] VITALS (9 sets, daily range): BP systolic 97–117; BP diastolic 67–85; PULSE 51–78; RESP 13–20; TEMP 36.3–36.7; O2SAT 96–100; BMI 38.5
--- NOTE | 2025-04-17 07:34 | SUR.PREOP ---
Patient expressed gratitude for prayer before their procedure.
--- NOTE | 2025-04-17 08:55 | PD.GYNPROC ---
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 The patient was taken to the operating room. Identity was confirmed using double identifiers, and she was placed on the operating table. General anesthesia was administered and the airway was secured. The patient was then positioned in the dorsal lithotomy position in Marquez stirrups. The abdomen and perineum were prepped in the usual sterile fashion and sterile drapes were applied. The bladder was emptied using a straight catheter. A sponge stick was placed in the vagina for uterine manipulation. Attention was now turned to the patient?s abdomen. A 5 mm incision was made at the base of the umbilicus using a scalpel. Laparoscopic entry was accomplished under direct visualization using an Optiview laparoscopic trocar. Once intra-abdominal placement was confirmed, pneumoperitoneum was insufflated to 15 mmHg. A pair of accessory ports were placed 2 cm superior and medial to the anterior superior iliac spines bilaterally. The camera was introduced into the abdomen and a preliminary survey was performed. The uterus and right adnexa were noted to be within normal limits, with no evidence of cysts. Bilateral fallopian tubes appeared grossly normal and were patent. A dermoid cyst was noted on the left ovary, measuring approximately 7?8 cm, containing hair and fatty tissue. The Harmonic HDI device was utilized to carefully dissect the cyst wall from the ovarian stroma circumferentially. Complete resection of the cyst was achieved. There was no identifiable normal residual ovarian tissue on the left. The cyst was placed into an EndoCatch retrieval bag and extracted through one of the laparoscopic ports. The peritoneal cavity was thoroughly irrigated, and all fluid was suctioned. The operative site was inspected and noted to be hemostatic. All instruments were now withdrawn. Pneumoperitoneum was desufflated. The laparoscopic ports were removed. The 12 mm port site was closed using a Eliceo-Eleazar closure device and secured with 0 Vicryl suture. The skin was closed with 4-0 Monocryl in a subcuticular fashion. Local anesthetic was infiltrated into all surgical sites. The skin was cleansed and sterile dressings were applied. The patient was undraped, general anesthesia was reversed, and she was transferred to the recovery room in stable and awake condition. She tolerated the procedure well. There were no complications. Estimated blood loss (ml): 20 Complications: none Surgical staff Operation Date: 04/17/25 07:30 Case Staff SEAMSTRESS FITTER: Shukri Foley RNphysical therapy assistant instructor: Maria Teresa Fay Diagnosis Problem List Completed Was Problem List Reviewed/Reconciled?: Yes
--- NOTE | 2025-04-17 08:58 | SUR.PHASEI ---
0858 Patient arrived to recovery resting comfortably in [facility], drowsy and able to arouse with verbal prompting, on oxygen 10L via oxy mask, breathing unlabored, vital signs stable, dressing intact to abdomen; dermabond, report received from Tanja JESUS/Shukri HARDING and Stefanie CARROLL
--- NOTE | 2025-04-17 09:16 | SUR.PHASEI ---
0916 Shukri HARDING at bedside, made of aware of patient heart rate dropping to 48 bpm momentarily then bounces up, however remaining ángel, no new orders, will monitor patient
[2025-04-17] MEDS: fentaNYL CIT INJ 50 mCg/ML AMP 2ML IVP (09:17)
[2025-04-17] MEDS: ONDANSETRON INJ 2 MG/ML INJ 2 ML 4 MG IVP (09:21)
[2025-04-17] MEDS: fentaNYL CIT INJ 50 mCg/ML AMP 2ML 25 MCG IVP (09:38)
--- NOTE | 2025-04-17 10:18 | SUR.PHASEII ---
1018 Patient meets discharge criteria from recovery, awake and alert, breathing unlabored, vital signs stable, dressing intact; no bleeding noted, per patient her pain is tolerable, assisted with dressing into her clothing, drinking 7up; denies nausea, discharge instructions given to patient and patients sister, sister signed discharge instructions. Patient given all her belongings prior to discharge, transported via wheelchair and left in a private vehicle.
== END 2025-04-17 10:18 | disposition home or self-care (01) ==
PROVIDERS: PCP Physician Assistant; Referring Provider Obstetrics & Gynecology; Visit Provider Obstetrics & Gynecology
PROC: (CPT 58662; principal; 2025-04-17 07:30)
DX: D27.1 Benign neoplasm of left ovary (principal)
CPT/HCPCS: 58661; 36415; 80053; 84703; 85025; 86850; 86900; 86901; A4217; A4649; J0131; J0171; J1100; J2250; J2371; J2405; J2704; J3010; J3490